=== PATIENT | male | born 1970 | race Caucasian/White ===

== ENCOUNTER 2016-07-26 18:20 | Emergency (ER) | payer OTHER ==
[~2016-07-26] VITALS: Ht 175.3 cm; Wt 86.5 kg
[2016-07-26 18:24] VITALS: TEMP 37.2; Ht 175.3 cm; Wt 86.5 kg
[2016-07-26] MEDS ORDERED: AMOX875T PO (18:45)
[2016-07-26] MEDS ORDERED: CLOP1TAB15 PO (18:57)
[2016-07-26] MEDS ORDERED: ASPI81TA28 PO (18:58)
[2016-07-26] MEDS ORDERED: DIPHTHERIA/TETANUS/PERTUSSIS 0.5 ML SYR/VIAL IM. ONE (19:00)
[2016-07-26] MEDS ORDERED: ROSU20TA PO (19:00)
--- NOTE | 2016-07-26 19:15 | EMERGENCY ROOM VISIT NOTE ---
History First contact with patient: 18:34 Chief Complaint: LEG PAIN,LEG INJURY Stated Complaint: LEG CONTUSION History of Present Illness The patient is a 46 year old male who presents to the Emergency Room with complaints. The patient reports that he is here on a business trip, and was fishing when he fell in the stream, striking his leg on a rock. The patient reports swelling on the front of the leg, but denies any significant pain with ambulation. He denies any knee or ankle pain. He denies any paresthesias or numbness of the right lower extremity. He rates his leg discomfort a 3 out of 10. The patient is uncertain of his last tetanus immunization. The patient also reports a developing sinus infection. The patient has frequent sinus infections. He has had increasing forehead and facial congestion , postnasal drip and cough. He denies any fevers or chills. He has had no prior history of sinus surgery. Review of Systems 10 system review was performed and was negative except for pertinent positives and negatives as indicated in history of present illness Past Medical/Surgical History Medical Problems: (1) Bronchitis (2) Coronary artery disease (3) Heart disease Surgical Problems: (1) History of heart artery stent (2) History of reconstruction of anterior cruciate ligament tear Family History No significant family history Social History Smoking Status: Former Smoker Alcohol Use: occasionally Marital Status: Housing Status: lives with family Occupation Status: employed Current/Historical Medications Scheduled Amoxicillin & Pot Clavulanate (Augmentin 875-125 mg), 1 TAB PO BID Aspirin (Aspirin Ec), 81 MG PO DAILY Clopidogrel (Plavix), 75 MG PO DAILY Rosuvastatin Calcium (Crestor), 20 MG PO DAILY Allergies Coded Allergies: No Known Allergies (Unverified , 07/26/16) Physical Exam Vital Signs Date Time Temp Pulse Resp B/P Pulse Ox O2 Delivery O2 Flow Rate FiO2 07/26/16 18:24 37.2 96 18 133/94 96 Room Air Physical Exam CONSTITUTIONAL: Healthy and well nourished. Alert and oriented X 3 with positive affect. HEENT: Normocephalic, atraumatic. Pupils equal, round and reactive. Ears and nares are clear. The patient does not have any focal tenderness to palpation or percussion of the frontal or maxillary sinuses. OROPHARYNX: No postnasal drip or tonsillar hypertrophy/exudates. NECK: Full active range of motion without discomfort. RESPIRATORY: Clear to auscultation bilaterally with no wheezing, crackles, rhonchi or stridor. CARDIOVASCULAR: Regular rate and rhythm with no murmurs, rubs or gallops. MUSCULOSKELETAL: Examination shows a small puncture wound/laceration to the anterior mid leg. The patient has a moderate underlying hematoma. The patient and relates without antalgic gait. No worsening pain with varus or valgus stress on the leg. He has no tenderness to palpation about the ankle or knee. Pedal pulses are intact. INTEGUMENTARY: No rash or other significant dermatologic conditions noted. NEUROLOGIC: Right lower extremity is sensory intact. Medical Decision & Procedures Medications Administered Medications (Trade) Dose Ordered Sig/Felicia Route Start Time Stop Time Status Last Admin Dose Admin Diphtheria/ Pertussis/Tetanus Vacc (Adacel Inj) 0.5 ml ONCE ONCE IM. 07/26/16 19:00 07/26/16 19:01 DC 07/26/16 19:10 0.5 ML ED Course Patient history and physical exam were performed. Nurse's notes were reviewed. The patient was provided a prescription for Augmentin. He was encouraged to keep the wound clean and covered with an antibody ointment and dressing until it heals. He was instructed to watch closely for any signs of wound infection, and seek further emergent reevaluation for any infection concerns. The patient was also instructed to follow-up with his PCP as needed for any persistent sinus symptoms. She was happy with plan of care, voiced understanding of all discharge instructions, refused any analgesics while in the emergency department , and rated his pain a 3 out of 10 at the time of discharge. The patient was also administered Adacel IM. Medical Decision Impression Primary Impression: Leg wound, right Additional Impression: Sinusitis Departure Information Dispostion Home / Self-Care Prescriptions Amoxicillin & Pot Clavulanate (Augmentin 875-125 mg) 1 Tab Tab 1 TAB PO BID for 10 Days, #20 TAB Prov: Gamaliel Worrell PA 07/26/16 Forms HOME CARE DOCUMENTATION FORM, IMPORTANT VISIT INFORMATION Patient Instructions Sinusitis Self Care, [facility] Additional Instructions Keep leg wound clean and covered with an antibiotic ointment and dressing until it heals. Complete all Augmentin antibiotics as prescribed. Ibuprofen 800 mg and/or Tylenol 1000 mg every 8 hours. You may also alternate these medications for more effective pain relief: Ibuprofen --4 HRS--> Tylenol --4 HRS--> ibuprofen --4 HRS--> Tylenol .... Watch for any developing right leg infection, and seek further emergent reevaluation if this occurs. Follow-up with your family doctor as needed for any recurrent sinus symptoms. Problem Qualifiers Primary Impression: Leg wound, right Encounter type: initial encounter Qualified Codes: S81.801A - Unspecified open wound, right lower leg, initial encounter Additional Impression: Sinusitis Sinusitis location: unspecified location Chronicity: unspecified Qualified Codes: J32.9 - Chronic sinusitis, unspecified
[2016-07-26 19:30] VITALS: BP 134/95; PULSE 94; O2SAT 98
== END 2016-07-26 19:31 | disposition home or self-care (01) ==
LOC: C.EDB 18:24 → C.EDD 19:31
DX: S81.801A Unspecified open wound, right lower leg, initial encounter (principal); J32.9 Chronic sinusitis, unspecified; W18.00XA Striking against unspecified object with subsequent fall, initial encounter; I25.10 Atherosclerotic heart disease of native coronary artery without angina pectoris; Z87.891 Personal history of nicotine dependence; Z79.82 Long term (current) use of aspirin; Z23 Encounter for immunization